=== PATIENT | male | born 1985 | race Caucasian/White ===

== ENCOUNTER 2016-04-28 12:43 | Inpatient (IN) | payer OTHER ==
[2016-04-28 14:04] VITALS: BMI 21.3
--- NOTE | 2016-04-28 16:42 | HP ---
COWS - Scale Resting Pulse: 0= [place] 80 or Below Sweatin= Chills/Flushing Restless Observation: 3= Extraneous Movement Pupil Size: 1= Pupils >than Normal Bone or Joint Aches: 1= Mild Discomfort Runny Nose/ Eye Tearin= Runny Nose/Eyes GI Upset > 30mins: 2= Nausea/Diarrhea Tremor Observation: 2= Slight Tremor Visible Yawning Observation: 1= 1-2x During Session Anxiety or Irritability: 2=Irritable/Anxious Goose Flesh Skin: 3=Piloerection COWS Score: 18 CIWA Score - CIWA Score Nausea/Vomitin-Mild Nausea/No Vomiting Muscle Tremors: 5 Anxiety: 4-Mod. Anxious/Guarded Agitation: 5 Paroxysmal Sweats: 1-Minimal Palms Moist Orientation: 0-Oriented Tacttile Disturbances: 0-None Auditory Disturbances: 0-None Visual Disturbances: 0-None Headache: 2-Mild CIWA-Ar Total Score: 18 Admission ROS BHS - HPI Chief Complaint: WITHDRAWAL SX Allergies/Adverse Reactions: Allergies Allergy/AdvReac Type Severity Reaction Status Date / Time doxycycline Allergy Mild Swelling Verified 11/16/15 12:37 History of Present Illness: 30 YEARS OLD MALE WITH LONG HISTORY OF ALCOHOL OPIATE NICOTINE DEPENDENCE, DENIES MEDICAL HAS ANXIETY, LONGEST SOBRIETY 18 MONTHS IS ADMITTED TO DETOX Exam Limitations: No Limitations - Ebola screening Have you traveled outside of the country in the last 21 days: No Have you had contact with anyone from an Ebola affected area: No Have you been sick,other than usual withdrawal symptoms: No Do you have a fever: No - Review of Systems Constitutional: Chills, Loss of Appetite, Changes in sleep, Unintentional Wgt. Loss EENT: reports: No Symptoms Reported Respiratory: reports: No Symptoms reported Cardiac: reports: No Symptoms Reported GI: reports: Diarrhea, Nausea, Poor Appetite, Poor Fluid Intake, Abdominal cramping : reports: No Symptoms Reported Musculoskeletal: reports: Back Pain, Joint Pain, Muscle Pain, Neck Pain Integumentary: reports: No Symptoms Reported Neuro: reports: Tingling Endocrine: reports: No Symptoms Reported Hematology: reports: No Symptoms Reported Psychiatric: reports: Judgement Intact, Orientated x3, Anxious Other Systems: Reviewed and Negative Patient History - Patient Medical History Hx Anemia: No Hx Asthma: No Hx Chronic Obstructive Pulmonary Disease (COPD): No Hx Cancer: No Hx Cardiac Disorders: No Hx Congestive Heart Failure: No Hx Hypertension: No Hx Hypercholesterolemia: No Hx Pacemaker: No HX Cerebrovascular Accident: No Hx Seizures: No Hx Dementia: No Hx Diabetes: No Hx Gastrointestinal Disorders: No Hx Liver Disease: No Hx Genitourinary Disorders: No Hx Sexually Transmitted Disorders: No Hx Renal Disease (ESRD): No Hx Thyroid Disease: No Hx Human Immunodeficiency Virus (HIV): No (tested neg 03/03) Hx Hepatitis C: No Hx Depression: Yes Hx Suicide Attempt: No Hx Bipolar Disorder: No Hx Schizophrenia: No - Patient Surgical History Past Surgical History: No Hx Neurologic Surgery: No Hx Cataract Extraction: No Hx Cardiac Surgery: No Hx Lung Surgery: No Hx Breast Surgery: No Hx Breast Biopsy: No Hx Abdominal Surgery: No Hx Appendectomy: No Hx Cholecystectomy: No Hx Genitourinary Surgery: No Hx Orthopedic Surgery: No - PPD History Previous Implant?: Yes Documented Results: Negative w/proof Implanted On Prior R Admission?: Yes Date: 11/18/15 PPD to be Administered?: No - Smoking Cessation Smoking history: Current every day smoker Have you smoked in the past 12 months: Yes Aproximately how many cigarettes per day: 20 Cigars Per Day: 0 Hx Chewing Tobacco Use: No Initiated information on smoking cessation: Yes 'Breaking Loose' booklet given: 04/28/16 - Substance & Tx. History Hx Alcohol Use: Yes Hx Substance Use: Yes Substance Use Type: Alcohol, Opiates, Tranquilizers Hx Substance Use Treatment: Yes - Substances Abused Alcohol Route: Oral Frequency: Daily Amount used: 2/03/23 VOLKA PINTS Age of first use: 20 Date of Last Use: 04/27/16 Heroin Route: Injection Frequency: Daily Amount used: 20 BAGS Age of first use: 26 Date of Last Use: 04/27/16 Family Disease History - Family Disease History Family Disease History: Other: Mother () Admission Physical Exam BHS - Vital Signs Vital Signs: Vital Signs - 24 hr 04/28/16 14:02 Temperature 97.5 F L Pulse Rate 68 Respiratory 18 Rate Blood Pressure 138/79 - Physical General Appearance: Yes: Appropriately Dressed, Moderate Distress, Thin, Tremorous, Irritable, Sweating, Anxious HEENTM: Yes: Hearing grossly Normal, Normal ENT Inspection, Normocephalic, Normal Voice Respiratory: Yes: Chest Non-Tender, Lungs Clear, Normal Breath Sounds, No Respiratory Distress, No Accessory Muscle Use Neck: Yes: Supple, Trachea in good position Breast: Yes: Breasts Symetrical Cardiology: Yes: Regular Rhythm, Regular Rate, S1, S2 Abdominal: Yes: Non Tender, Soft, Increased Bowel Sounds Genitourinary: Yes: Within Normal Limits Back: Yes: Normal Inspection Musculoskeletal: Yes: full range of Motion, Gait Steady, Back pain, Muscle Pain Extremities: Yes: Normal Range of Motion, Non-Tender, Tremors Neurological: Yes: Alert, Motor Strength 5/5, Normal Response, Depressed Affect Integumentary: Yes: Warm, Moist, Track [place] Lymphatic: Yes: Within Normal Limits - Diagnostic (1) Nicotine dependence Current Visit: Yes Status: Acute Qualifiers: Nicotine product type: cigarettes Substance use status: in withdrawal Qualified Code(s): F17.213 - Nicotine dependence, cigarettes, with withdrawal (2) Alcohol dependence with uncomplicated withdrawal Current Visit: Yes Status: Acute (3) Opioid dependence with withdrawal Current Visit: Yes Status: Acute (4) Weight loss Current Visit: Yes Status: Acute (5) Abrasion of skin Current Visit: Yes Status: Acute Comment: DORSAL OF BOTH HANDS (6) Anxiety associated with depression Current Visit: Yes Status: Suspected Cleared for Admission S - Detox or Rehab S Level of Care: Medically Managed Detox Regimen/Protocol: Methadone/Valium S Breath Alcohol Content Breath Alcohol Content: 0 Urine Drug Screen - Results Drug Screen Negative: No Urine Drug Screen Results: OPI-Opiates, BZO-Benzodiazepines, MTD-Methadone, OXY- Oxycodone
[2016-04-28] MEDS ORDERED: MAG HYDROX/AL HYDROX/SIMETH 30 ML UNIT-DOSE CUP PO PRN (16:43)
[2016-04-28] MEDS ORDERED: MAGNESIUM CITRATE 300 ML BOTTLE PO PRN (16:43)
[2016-04-28] MEDS ORDERED: NICOTINE POLACRILEX 2 MG GUM BUC PRN (16:43)
[2016-04-28] MEDS ORDERED: guaiFENesin/D-METHORPHAN HB 10 ML UNIT-DOSE CUPS PO PRN (16:43)
[2016-04-28] MEDS ORDERED: ACETAMINOPHEN 325 MG TABLET (FP) PO PRN (16:43)
[2016-04-28] MEDS ORDERED: MENTHOL/PHENOL 1 EACH UD MM PRN (16:43)
[2016-04-28] MEDS ORDERED: LOPERAMIDE HCL 2 MG CAPSULE PO PRN (16:43)
[2016-04-28] MEDS ORDERED: IBUPROFEN 400 MG TABLET (FP) PO PRN (16:43)
[2016-04-28] MEDS ORDERED: P-EPHED 60MG/TRIPROLIDI 2.5MG TABLET PO PRN (16:43)
[2016-04-28] MEDS ORDERED: MAGNESIUM HYDROX 2400MG/30ML ORAL SUSPENSION 30 ML CUP PO PRN (16:43)
[2016-04-28] MEDS ORDERED: diazePAM 5 MG TABLET PO ONE (18:30)
[2016-04-28] MEDS ORDERED: BACITRACIN 0.9 GM PACKET TP ONE (18:30)
[2016-04-28] MEDS ORDERED: METHADONE HCL 10 MG TABLET (FOR DETOX USE ONLY) PO ONE ×2 (18:30→23:00)
[2016-04-28] MEDS: THIAMINE HCL 100 MG TABLET (FP) PO SCH (22:09)
[2016-04-28] MEDS: diazePAM 5 MG TABLET PO SCH (22:09)
[2016-04-28] MEDS: cloNIDine HCL 0.1 MG TABLET PO PRN (22:09)
[2016-04-28] MEDS: CYCLOBENZAPRINE HCL 10 MG TABLET (FP) PO PRN (22:09)
[2016-04-28] MEDS: diphenhydrAMINE HCL 50 MG CAPSULE PO PRN (22:11)
[2016-04-28 23:00] LABS: URINE APPEARANCE CLEAR; URINE BILIRUBIN NEGATIVE (NEGATIVE); URINE BLOOD NEGATIVE (NEGATIVE); URINE COLOR YELLOW; URINE GLUCOSE (UA) NEGATIVE (NEGATIVE); URINE KETONE NEGATIVE (NEGATIVE); URINE LEUK ESTERASE NEGATIVE (NEGATIVE); URINE NITRITE NEGATIVE (NEGATIVE); URINE PROTEIN NEGATIVE (NEGATIVE); URINE UROBILINOGEN NEGATIVE E.U./dl (0.2-1.0)
[2016-04-29] MEDS: diazePAM 5 MG TABLET PO SCH ×3 (05:34→22:19)
[2016-04-29] MEDS ORDERED: METHADONE HCL 10 MG TABLET (FOR DETOX USE ONLY) PO SCH (10:00)
--- NOTE | 2016-04-29 10:06 | CONSULT ---
[facility] Psychiatric Consult - Data Date of interview: 04/29/16 Admission source: [facility] Identifying data: This ios 30 years old male with no psychiatric hospitalization history intoxicated with Alcohol, Opioids, Xanax and Nicotine Substance Abuse History: - Smoking Cessation. Smoking history: Current every day smoker. Have you smoked in the past 12 months: Yes. Aproximately how many cigarettes per day: 20. Cigars Per Day: 0. Hx Chewing Tobacco Use: No. Initiated information on smoking cessation: Yes. 'Breaking Loose' booklet given : 04/28/16. - Substance & Tx. History. Hx Alcohol Use: Yes. Hx Substance Use : Yes. Substance Use Type: Alcohol, Opiates, Tranquilizers. Hx Substance Use Treatment: Yes. - Substances Abused. Alcohol. Route: Oral. Frequency: Daily. Amount used: 2/03/23 VOLKA PINTS. Age of first use: 20. Date of Last Use : 04/27/16. Heroin. Route: Injection. Frequency: Daily. Amount used: 20 BAGS. Age of first use: 26. Date of Last Use: 04/27/16 Medical History: Weight loss Psychiatric History: Patient reports history of anxiety, reports insomnia, reportsd taking prior to admission: Trazodone 100mg po qhs Physical/Sexual Abuse/Trauma History: Denies Additional Comment: Trazodone 100mg po qhs Mental Status Exam - Mental Status Exam Alert and Oriented to: Person Cognitive Function: Fair Patient Appearance: Unkempt Mood: Sad Affect: Flat Patient Behavior: Sedated Speech Pattern: Delayed Voice Loudness: Mildly Soft/Quiet Thought Process: Circumstantial Thought Disorder: Being Controlled Hallucinations: Denies Suicidal Ideation: Denies Homicidal Ideation: Denies Insight/Judgement: Fair Sleep: Difficulty falling asleep Appetite: Weight loss Muscle strength/Tone: Mild Hypotonicity Gait/Station: Shuffling Additional Comments: Trazodone 100mg po qhs Psychiatric Findings - Problem List ([place] 1, 2,3) (1) Alcohol dependence with uncomplicated withdrawal Current Visit: Yes Status: Acute (2) Opioid dependence with withdrawal Current Visit: Yes Status: Acute (3) Weight loss Current Visit: Yes Status: Acute (4) Anxiety associated with depression Current Visit: Yes Status: Suspected (5) Substance-induced sleep disorder Current Visit: No Status: Acute (6) Benzodiazepine dependence Current Visit: No Status: Chronic (7) Drug-induced mood disorder Current Visit: No Status: Chronic - Initial Treatment Plan Initial Treatment Plan: Trazodone 100mg po qhs
[2016-04-29] MEDS: NICOTINE 21 MG/24 HOURS TOPICAL PATCH TD SCH (10:16)
[2016-04-29] MEDS: diazePAM 5 MG TABLET PO PRN ×3 (10:18→18:47)
[2016-04-29] MEDS: PRENATAL VITAMINS W/ FOLIC ACID TABLET (FP) PO SCH (10:18)
[2016-04-29] MEDS: CYCLOBENZAPRINE HCL 10 MG TABLET (FP) PO PRN ×2 (10:20→22:19)
[2016-04-29 10:41] LABS: MCH 28.4 pg (25.7-33.7); MCHC 33.1 g/dl (32.0-35.9); MEAN CELL VOLUME 85.7 fl (80-96); MEAN PLT VOLUME 8.3 fl (7.5-11.1); PLATELET COUNT 253 K/MM3 (134-434); RDW 14.7 % (11.9-15.9); WHITE BLOOD COUNT 10.1 K/mm3 (4.0-10.0)
[2016-04-29 10:52] LABS: ALBUMIN 4.4 g/dl (3.4-5.0); ALK PHOS 64 U/L (45-117); ANION GAP 10 (8-16); BILIRUBIN,TOTAL 0.3 mg/dL (0.2-1.0); CALCIUM 9.4 mg/dL (8.5-10.1); CO2 28 mmol/L (21-32); GLUCOSE,RANDOM 84 mg/dL (74-106); SGOT/AST 17 U/L (15-37); SGPT/ALT 42 U/L (12-78); TOT PROT 8.1 g/dl (6.4-8.2)
[2016-04-29] MEDS: cloNIDine HCL 0.1 MG TABLET PO PRN ×2 (11:56→22:19)
--- NOTE | 2016-04-29 12:37 | PN ---
[facility] CIWA - CIWA Score Nausea/Vomitin Muscle Tremors: 3 Anxiety: 3 Agitation: 2 Paroxysmal Sweats: 1-Minimal Palms Moist Orientation: 0-Oriented Tacttile Disturbances: 1-Very Mild Itch/Numbness Auditory Disturbances: 1-Very Mild Visual Disturbances: 1-Very Mild Sensitivity Headache: 2-Mild CIWA-Ar Total Score: 17 BHS COWS - Scale Resting Pulse: 0= [place] 80 or Below Sweatin= Chills/Flushing Restless Observation: 3= Extraneous Movement Pupil Size: 1= Pupils >than Normal Bone or Joint Aches: 2= Severe Diffuse Aches Runny Nose/ Eye Tearin= Runny Nose/Eyes GI Upset > 30mins: 2= Nausea/Diarrhea Tremor Observation of Outstretched Hands: 2= Slight Tremor Visible Yawning Observation: 2= >3x During Session Anxiety or Irritability: 2=Irritable/Anxious Goose Flesh Skin: 0=Smooth Skin COWS Score: 17 S Progress Note (SOAP) Subjective: ALERT,IRRITABLE,ANXIOUS,PAIN IN THE BODY AND BACK,TREMOR,INTERRUPTED SLEEP Objective: 04/29/16 12:35 Vital Signs Temperature 97.7 F 04/29/16 10:01 Pulse Rate 68 04/29/16 10:01 Respiratory Rate 18 04/29/16 10:01 Blood Pressure 129/75 04/29/16 10:01 O2 Sat by Pulse Oximetry (%) EKG SINUS BRADYCARDIA WITH SINUS ARRHYTHMIA 49/MIN NO CHEST PAIN,NO SOB,NO DIZZINESS Laboratory Last Values WBC 10.1 K/mm3 (4.0-10.0) H 04/29/16 06:00 RBC 4.70 M/mm3 (4.00-5.60) 04/29/16 06:00 Hgb 13.3 GM/dL (11.7-16.9) 04/29/16 06:00 Hct 40.2 % (35.4-49) 04/29/16 06:00 MCV 85.7 fl (80-96) 04/29/16 06:00 MCHC 33.1 g/dl (32.0-35.9) 04/29/16 06:00 RDW 14.7 % (11.9-15.9) 04/29/16 06:00 Plt Count 253 K/MM3 (134-434) 04/29/16 06:00 MPV 8.3 fl (7.5-11.1) D 04/29/16 06:00 Sodium 140 mmol/L (136-145) 04/29/16 06:00 Potassium 4.0 mmol/L (3.5-5.1) 04/29/16 06:00 Chloride 102 mmol/L (98-107) 04/29/16 06:00 Carbon Dioxide 28 mmol/L (21-32) 04/29/16 06:00 Anion Gap 10 (8-16) 04/29/16 06:00 BUN 13 mg/dL (7-18) 04/29/16 06:00 Creatinine 1.0 mg/dL (0.7-1.3) 04/29/16 06:00 Creat Clearance w eGFR > 60 (>60) 04/29/16 06:00 Random Glucose 84 mg/dL (74-106) 04/29/16 06:00 Calcium 9.4 mg/dL (8.5-10.1) 04/29/16 06:00 Total Bilirubin 0.3 mg/dL (0.2-1.0) 04/29/16 06:00 AST 17 U/L (15-37) D 04/29/16 06:00 ALT 42 U/L (12-78) D 04/29/16 06:00 Alkaline Phosphatase 64 U/L (45-117) 04/29/16 06:00 Total Protein 8.1 g/dl (6.4-8.2) 04/29/16 06:00 Albumin 4.4 g/dl (3.4-5.0) 04/29/16 06:00 Urine Color Yellow 04/28/16 17:19 Urine Appearance Clear 04/28/16 17:19 Urine pH 5.0 (5.0-8.0) D 04/28/16 17:19 Ur Specific [place] 1.026 (1.001-1.035) 04/28/16 17:19 Urine Protein Negative (NEGATIVE) 04/28/16 17:19 Urine Glucose (UA) Negative (NEGATIVE) 04/28/16 17:19 Urine Ketones Negative (NEGATIVE) 04/28/16 17:19 Urine Blood Negative (NEGATIVE) 04/28/16 17:19 Urine Nitrite Negative (NEGATIVE) 04/28/16 17:19 Urine Bilirubin Negative (NEGATIVE) 04/28/16 17:19 Urine Urobilinogen Negative E.U./dl (0.2-1.0) 04/28/16 17:19 Ur Leukocyte Esterase Negative (NEGATIVE) 04/28/16 17:19 Assessment: 04/29/16 12:37 WITHDRAWAL SYMPTOM Plan: CONTINUE DETOX
--- NOTE | 2016-04-29 13:33 | EKG ---
Test Reason : Blood Pressure : / mmHG Vent. Rate : 070 BPM Atrial Rate : 070 BPM P-R Int : 140 ms QRS Dur : 084 ms QT Int : 402 ms P-R-T Axes : 058 036 043 degrees QTc Int : 434 ms NORMAL SINUS RHYTHM SEPTAL INFARCT , AGE UNDETERMINED ABNORMAL ECG NO PREVIOUS ECGS AVAILABLE Confirmed by KEE SANDOVAL MD ([id number]) on 04/29/2016 1:33:46 PM Referred By: Confirmed By:KEE SANDOVAL MD
--- NOTE | 2016-04-29 13:36 | EKG ---
Test Reason : Blood Pressure : / mmHG Vent. Rate : 052 BPM Atrial Rate : 052 BPM P-R Int : 294 ms QRS Dur : 092 ms QT Int : 440 ms P-R-T Axes : 065 -10 044 degrees QTc Int : 409 ms SINUS BRADYCARDIA WITH MARKED SINUS ARRHYTHMIA WITH 1ST DEGREE A-V BLOCK NONSPECIFIC T WAVE ABNORMALITY ABNORMAL ECG WHEN COMPARED WITH ECG OF 28-APR-2016 18:23, [place] INTERVAL HAS INCREASED CRITERIA FOR SEPTAL INFARCT ARE NO LONGER PRESENT NONSPECIFIC T WAVE ABNORMALITY NOW EVIDENT IN INFERIOR LEADS T WAVE INVERSION NOW EVIDENT IN ANTERIOR LEADS Confirmed by KEE SANDOVAL MD ([id number]) on 04/29/2016 1:35:54 PM Referred By: Confirmed By:KEE SANDOVAL MD
[2016-04-29] MEDS: THIAMINE HCL 100 MG TABLET (FP) PO SCH (22:19)
[2016-04-29] MEDS: traZODone HCL 100 MG TABLET (FP) PO SCH (22:19)
[2016-04-29] MEDS: diphenhydrAMINE HCL 50 MG CAPSULE PO PRN (22:19)
[2016-04-30] MEDS: diazePAM 5 MG TABLET PO PRN ×4 (05:25→20:35)
[2016-04-30] MEDS: METHADONE HCL 5 MG TABLET (FOR DETOX USE ONLY) PO SCH (10:25)
[2016-04-30] MEDS: PRENATAL VITAMINS W/ FOLIC ACID TABLET (FP) PO SCH (10:25)
[2016-04-30] MEDS: diazePAM 5 MG TABLET PO SCH ×2 (10:25→22:22)
[2016-04-30] MEDS: NICOTINE 21 MG/24 HOURS TOPICAL PATCH TD SCH (10:26)
[2016-04-30] MEDS: CYCLOBENZAPRINE HCL 10 MG TABLET (FP) PO PRN ×2 (10:27→22:22)
[2016-04-30] MEDS: cloNIDine HCL 0.1 MG TABLET PO PRN ×2 (10:27→22:21)
--- NOTE | 2016-04-30 13:22 | PN ---
[facility] CIWA - CIWA Score Nausea/Vomitin-No Nausea/No Vomiting Muscle Tremors: 4-Moderate,w/Arms Extend Anxiety: 3 Agitation: 4-Moderately Restless Paroxysmal Sweats: 3 Orientation: 0-Oriented Tacttile Disturbances: 0-None Auditory Disturbances: 0-None Visual Disturbances: 0-None Headache: 0-None Present CIWA-Ar Total Score: 14 BHS COWS - Scale Resting Pulse: 0= [place] 80 or Below Sweatin=Flushed/Facial Moisture Restless Observation: 1= Difficult to Sit Still Pupil Size: 0= Normal to Room Light Bone or Joint Aches: 2= Severe Diffuse Aches Runny Nose/ Eye Tearin= Runny Nose/Eyes GI Upset > 30mins: 1= Stomach Cramp Tremor Observation of Outstretched Hands: 2= Slight Tremor Visible Yawning Observation: 2= >3x During Session Anxiety or Irritability: 2=Irritable/Anxious Goose Flesh Skin: 0=Smooth Skin COWS Score: 14 [facility] Progress Note (SOAP) Subjective: shakes sweats headache agitation irritable body aches Objective: 04/30/16 13:22 Vital Signs Temperature 97.5 F L 04/30/16 10:12 Pulse Rate 72 04/30/16 10:12 Respiratory Rate 18 04/30/16 10:12 Blood Pressure 110/70 04/30/16 10:12 O2 Sat by Pulse Oximetry (%) Laboratory Tests 04/28/16 04/29/16 04/29/16 17:19 06:00 06:00 WBC 10.1 H RBC 4.70 Hgb 13.3 Hct 40.2 MCV 85.7 MCHC 33.1 RDW 14.7 Plt Count 253 MPV 8.3 D Sodium 140 Potassium 4.0 Chloride 102 Carbon Dioxide 28 Anion Gap 10 BUN 13 Creatinine 1.0 Creat Clearance w eGFR > 60 Random Glucose 84 Calcium 9.4 Total Bilirubin 0.3 AST 17 D ALT 42 D Alkaline Phosphatase 64 Total Protein 8.1 Albumin 4.4 Urine Color Yellow Urine Appearance Clear Urine pH 5.0 D Ur Specific [place] 1.026 Urine Protein Negative Urine Glucose (UA) Negative Urine Ketones Negative Urine Blood Negative Urine Nitrite Negative Urine Bilirubin Negative Urine Urobilinogen Negative Ur Leukocyte Esterase Negative RPR Titer 04/29/16 06:00 WBC RBC Hgb Hct MCV MCHC RDW Plt Count MPV Sodium Potassium Chloride Carbon Dioxide Anion Gap BUN Creatinine Creat Clearance w eGFR Random Glucose Calcium Total Bilirubin AST ALT Alkaline Phosphatase Total Protein Albumin Urine Color Urine Appearance Urine pH Ur Specific [place] Urine Protein Urine Glucose (UA) Urine Ketones Urine Blood Urine Nitrite Urine Bilirubin Urine Urobilinogen Ur Leukocyte Esterase RPR Titer Nonreactive awake/alert ambulating no acute distress Assessment: 04/30/16 13:22 withdrawal sx Plan: continue detox increase fluids
[2016-04-30] MEDS: traZODone HCL 100 MG TABLET (FP) PO SCH (22:22)
[2016-04-30] MEDS: diphenhydrAMINE HCL 50 MG CAPSULE PO PRN (22:22)
[2016-04-30] MEDS: THIAMINE HCL 100 MG TABLET (FP) PO SCH (22:22)
[2016-05-01] MEDS: diazePAM 5 MG TABLET PO PRN ×2 (05:15→12:35)
--- NOTE | 2016-05-01 10:15 | PN ---
BHS Progress Note (SOAP) Subjective: agitation sweats irritable interrupted sleep Objective: 05/01/16 10:14 Vital Signs Temperature 97.5 F L 05/01/16 06:33 Pulse Rate 81 05/01/16 06:33 Respiratory Rate 18 05/01/16 06:33 Blood Pressure 115/73 05/01/16 06:33 O2 Sat by Pulse Oximetry (%) Laboratory Tests 04/28/16 04/29/16 04/29/16 17:19 06:00 06:00 WBC 10.1 H RBC 4.70 Hgb 13.3 Hct 40.2 MCV 85.7 MCHC 33.1 RDW 14.7 Plt Count 253 MPV 8.3 D Sodium 140 Potassium 4.0 Chloride 102 Carbon Dioxide 28 Anion Gap 10 BUN 13 Creatinine 1.0 Creat Clearance w eGFR > 60 Random Glucose 84 Calcium 9.4 Total Bilirubin 0.3 AST 17 D ALT 42 D Alkaline Phosphatase 64 Total Protein 8.1 Albumin 4.4 Urine Color Yellow Urine Appearance Clear Urine pH 5.0 D Ur Specific [place] 1.026 Urine Protein Negative Urine Glucose (UA) Negative Urine Ketones Negative Urine Blood Negative Urine Nitrite Negative Urine Bilirubin Negative Urine Urobilinogen Negative Ur Leukocyte Esterase Negative RPR Titer 04/29/16 06:00 WBC RBC Hgb Hct MCV MCHC RDW Plt Count MPV Sodium Potassium Chloride Carbon Dioxide Anion Gap BUN Creatinine Creat Clearance w eGFR Random Glucose Calcium Total Bilirubin AST ALT Alkaline Phosphatase Total Protein Albumin Urine Color Urine Appearance Urine pH Ur Specific [place] Urine Protein Urine Glucose (UA) Urine Ketones Urine Blood Urine Nitrite Urine Bilirubin Urine Urobilinogen Ur Leukocyte Esterase RPR Titer Nonreactive awake/alert ambulating no acute distress Assessment: 05/01/16 10:15 withdrawal sx Plan: continue detox increase fluids
[2016-05-01] MEDS: NICOTINE 21 MG/24 HOURS TOPICAL PATCH TD SCH (10:33)
[2016-05-01] MEDS: METHADONE HCL 5 MG TABLET (FOR DETOX USE ONLY) PO SCH (10:34)
[2016-05-01] MEDS: cloNIDine HCL 0.1 MG TABLET PO PRN (10:34)
[2016-05-01] MEDS: PRENATAL VITAMINS W/ FOLIC ACID TABLET (FP) PO SCH (10:34)
[2016-05-01] MEDS: diazePAM 5 MG TABLET PO SCH (10:34)
[2016-05-01] MEDS: CYCLOBENZAPRINE HCL 10 MG TABLET (FP) PO PRN (10:34)
--- NOTE | 2016-05-01 17:43 | PN ---
S Progress Note Note: PATIENT DID NOT WANT TO COMPLETE TREATMENT,SIGNED RELEASE AMA,DID NOT WANT TO WAIT,SEEN BY COUNSELOR
--- NOTE | 2016-05-01 17:48 | DS ---
[facility] Detox Discharge Summary Admission Date: 04/28/16 Discharge Date: 05/01/16 - History Present History: Alcohol Dependence, Opioid Dependence Additional Comments: PATIENT DID NOT WANT TO COMPLETE TREATMENT,SEEN BY COUNSELOR,DID NOT WANT TO WAIT,SIGNED RELEASE AMA Pertinent Past History: NICOTINE DEPENDENCE - Physical Exam Results Vital Signs: Vital Signs Temperature 97.3 F L 05/01/16 13:53 Pulse Rate 83 05/01/16 13:53 Respiratory Rate 18 05/01/16 13:53 Blood Pressure 114/58 05/01/16 13:53 O2 Sat by Pulse Oximetry (%) Pertinent Admission Physical Exam Findings: WITHDRAWAL SYMPTOM - Medication Discharge Medications: Ambulatory Orders Trazodone HCl [Desyrel -] 100 mg PO HS #30 tablet 11/27/13 Trazodone HCl [Desyrel -] 100 mg PO HS #30 tablet 04/29/16 - AMA Did Patient Leave Against Medical Advice: Yes
[2016-05-01 18:00] VITALS: BP 112/64; PULSE 62; TEMP 97.5
[2016-05-02] MEDS ORDERED: diazePAM 5 MG TABLET PO SCH (10:00)
[2016-05-02] MEDS ORDERED: METHADONE HCL 10 MG TABLET (FOR DETOX USE ONLY) PO SCH (10:00)
[2016-05-03] MEDS ORDERED: METHADONE HCL 5 MG TABLET (FOR DETOX USE ONLY) PO SCH (06:00)
== END 2016-05-01 17:10 | disposition left against medical advice (07) | DRG 770 ==
LOC: YASAS 12:43 → Y6N 17:49
PROVIDERS: ADMIT Internal Medicine; ATTEND Internal Medicine
PROC: HZ2ZZZZ Detoxification Services for Substance Abuse Treatment (ICD-10-PCS; principal; 2016-05-01)
DX: F11.23 Opioid dependence with withdrawal (principal); F10.230 Alcohol dependence with withdrawal, uncomplicated; F13.20 Sedative, hypnotic or anxiolytic dependence, uncomplicated; F19.24 Other psychoactive substance dependence with psychoactive substance-induced mood disorder; F19.282 Other psychoactive substance dependence with psychoactive substance-induced sleep disorder; F41.8 Other specified anxiety disorders; S60.512A Abrasion of left hand, initial encounter; S60.511A Abrasion of right hand, initial encounter; X58.XXXA Exposure to other specified factors, initial encounter; Y93.9 Activity, unspecified; Y92.9 Unspecified place or not applicable; Y99.9 Unspecified external cause status; R63.4 Abnormal weight loss; Z68.21 Body mass index [BMI] 21.0-21.9, adult
CPT/HCPCS: 36415; 80053; 81003; 85027; 86593; 93005; 93010